=== PATIENT | male | born 1940 | race Two or more races ===

== ENCOUNTER 2018-10-13 15:31 | Inpatient (IN) | payer MEDICARE ==
[~2018-10-13] VITALS: Ht 177.8 cm; Wt 84.6 kg
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
[2018-10-13 15:50] LABS: BASOPHILS # (AUTO) 0.02 x10^3/uL (0-0.1); BASOPHILS % (AUTO) 0 % (0-1); EOSINOPHILS # (AUTO) 0.02 x10^3/uL (0-0.4); EOSINOPHILS % (AUTO) 0 % (1-7); LYMPHOCYTES # (AUTO) 1.16 x10^3/uL (1-3.4); LYMPHOCYTES % (AUTO) 13 % (22-44); MD NO; MEAN CORPUSCULAR HEMOGLOBIN 30.9 pg (27.5-34.5); MEAN CORPUSCULAR HGB CONC 32.8 g/dL (33.2-36.2); MEAN CORPUSCULAR VOLUME 94.2 fL (81-97); MEAN PLATELET VOLUME 9.2 fL (7.4-10.4); MONOCYTES # (AUTO) 0.74 x10^3/uL (0.2-0.8); MONOCYTES % (AUTO) 8 % (2-9); NEUTROPHILS # (AUTO) 6.89 x10^3/uL (1.8-6.8); NEUTROPHILS % (AUTO) 78 % (42-75); PLATELET COUNT 192 x10^3/uL (130-400); RED BLOOD COUNT 4.36 x10^6/uL (4.38-5.82); RED CELL DISTRIBUTION WIDTH 13.4 % (9.4-14.8)
[2018-10-13 15:58] LABS: INTERNATIONAL NORMALIZED RATIO 1.11 (0.93-1.1); PROTHROMBIN TIME 11.6 Seconds (9.6-11.5)
[2018-10-13 16:00] LABS: ALANINE AMINOTRANSFERASE 23 U/L (12-78); ALBUMIN 3.8 g/dL (3.4-5.0); ANION GAP 7 mmol/L (5-15); CALCIUM 8.9 mg/dL (8.5-10.1); CHLORIDE 115 mmol/L (98-107); CREATININE 0.95 mg/dL (0.7-1.3)
[2018-10-13 16:05] LABS: ALKALINE PHOSPHATASE 75 U/L (45-117); BILIRUBIN,TOTAL 1.4 mg/dL (0.2-1.0); SALICYLATE LEVEL < 1.7 mg/dL (2.8-20.0); TOTAL PROTEIN 7.1 g/dL (6.4-8.2); TROPONIN I < 0.015 ng/mL (0.000-0.045)
--- NOTE | 2018-10-13 16:05 | NUR ---
PT RETURNED FROM CT, UPRIGHT ON GURNEY AWAKE & COMFORTABLE, RESPONDS SPONTANEOUSLY TO NAME, NAD, COMFORT MEASURES PROVIDED, CALL LIGHT WITHIN REACH.
--- NOTE | 2018-10-13 16:59 | NUR ---
PT REMAINS UPRIGHT ON GURNEY AWAKE & COMFORTABLE, RESPONDS SPONTANEOUSLY TO NAME, NAD, COMFORT MEASURES PROVIDED, CALL LIGHT WITHIN REACH.
[2018-10-13] MEDS ORDERED: simvastatin (17:12)
[2018-10-13] MEDS ORDERED: tamsulosin (17:12)
[2018-10-13] MEDS ORDERED: metformin (17:12)
[2018-10-13 17:23] LABS: MICROSCOPIC AUTO
[2018-10-13 17:29] LABS: AMPHETAMINE SCREEN, URINE Negative (Negative); BARBITURATE SCREEN, URINE Negative (Negative); BENZODIAZEPINE SCREEN, URINE Negative (Negative); CANNABINOID SCREEN, URINE Negative (Negative); COCAINE SCREEN, URINE Negative (Negative); METHADONE SCREEN, URINE Negative (Negative); OPIATE SCREEN, URINE Negative (Negative)
[2018-10-13 17:34] LABS: CULTURE INDICATED? NO
[2018-10-13] MEDS ORDERED: ZIPRASIDONE 20 MG INJ IM ONE (18:00)
--- NOTE | 2018-10-13 18:00 | NUR ---
PT SEEN BY JAYDON NICOLE), UPRIGHT ON GURNEY AWAKE & COMFORTABLE, RESPONDS SPONTANEOUSLY TO NAME, NAD, COMFORT MEASURES PROVIDED, CALL LIGHT WITHIN REACH.
--- NOTE | 2018-10-13 18:28 | NUR ---
Pt to be admitted to [facility], room 486-2. Report called to
--- NOTE | 2018-10-13 18:55 | NUR ---
REPORT GIVEN TO LOIS
[2018-10-13 20:00] VITALS: BP 139/71
[2018-10-13] MEDS ORDERED: DEXTROSE 4 GM TAB.CHEW PO PRN (21:30)
[2018-10-13] MEDS ORDERED: hydrALAzine 20 MG/ML, 1ML IVPush PRN (21:30)
[2018-10-13] MEDS ORDERED: GLUCAGON 1 MG IM PRN (21:30)
[2018-10-13] MEDS ORDERED: LORazepam 1MG TABLET PO PRN (21:30)
[2018-10-13] MEDS ORDERED: ONDANSETRON 2MG/ML, 2ML IVPush PRN (21:30)
[2018-10-13] MEDS ORDERED: ACETAMINOPHEN 325 MG TABLET PO PRN (21:30)
[2018-10-13] MEDS ORDERED: DEXTROSE 50%, 50ML SYRINGE IVPush PRN (21:30)
[2018-10-13 22:42] LABS: HEMOGLOBIN A1C 6.1 % (4.2-6.3)
[2018-10-13] MEDS: POTASSIUM CHLORIDE 20 MEQ, MAGNESIUM SULFATE 2 GM, THIAMINE 200 MG, MVI ADULT 10 ML, FO... IV SCH (22:45)
[2018-10-13 23:10] LABS: TROPONIN I < 0.015 ng/mL (0.000-0.045)
[2018-10-14 00:14] VITALS: BP 139/71
[2018-10-14 00:57] VITALS: BP 121/71
[2018-10-14] MEDS ORDERED: ASPI-515 PO (01:19)
[2018-10-14] MEDS ORDERED: GLIP2.5T PO (01:23)
[2018-10-14] MEDS ORDERED: IBUP200C8 PO (01:26)
[2018-10-14 05:40] LABS: BASOPHILS # (AUTO) 0.02 x10^3/uL (0-0.1); BASOPHILS % (AUTO) 0 % (0-1); EOSINOPHILS # (AUTO) 0.13 x10^3/uL (0-0.4); EOSINOPHILS % (AUTO) 2 % (1-7); LYMPHOCYTES # (AUTO) 1.74 x10^3/uL (1-3.4); LYMPHOCYTES % (AUTO) 26 % (22-44); MD NO; MEAN CORPUSCULAR HEMOGLOBIN 30.1 pg (27.5-34.5); MEAN CORPUSCULAR HGB CONC 32.2 g/dL (33.2-36.2); MEAN CORPUSCULAR VOLUME 93.2 fL (81-97); MEAN PLATELET VOLUME 9.2 fL (7.4-10.4); MONOCYTES # (AUTO) 0.87 x10^3/uL (0.2-0.8); MONOCYTES % (AUTO) 13 % (2-9); NEUTROPHILS # (AUTO) 3.87 x10^3/uL (1.8-6.8); NEUTROPHILS % (AUTO) 58 % (42-75); PLATELET COUNT 169 x10^3/uL (130-400); RED BLOOD COUNT 4.22 x10^6/uL (4.38-5.82); RED CELL DISTRIBUTION WIDTH 13.8 % (9.4-14.8)
[2018-10-14 05:49] LABS: CALCIUM 8.5 mg/dL (8.5-10.1); CHLORIDE 111 mmol/L (98-107)
[2018-10-14 05:58] LABS: ANION GAP 8 mmol/L (5-15); CREATININE 0.83 mg/dL (0.7-1.3); TROPONIN I < 0.015 ng/mL (0.000-0.045)
[2018-10-14 06:40] VITALS: BP 123/72
[2018-10-14] MEDS: SODIUM CHLORIDE FLUSH 10ML SYR IVF SCH ×2 (08:27→22:26)
[2018-10-14 12:26] VITALS: BP 104/61
[2018-10-14 20:21] VITALS: BP 126/71
[2018-10-14] MEDS: POTASSIUM CHLORIDE 20 MEQ, MAGNESIUM SULFATE 2 GM, THIAMINE 200 MG, MVI ADULT 10 ML, FO... IV SCH (22:26)
[2018-10-15 01:08] VITALS: BP 130/77
[2018-10-15 06:02] LABS: ANION GAP 5 mmol/L (5-15); CALCIUM 8.5 mg/dL (8.5-10.1); CHLORIDE 111 mmol/L (98-107); CREATININE 0.82 mg/dL (0.7-1.3)
[2018-10-15 08:15] VITALS: BP 146/85
[2018-10-15] MEDS: SODIUM CHLORIDE FLUSH 10ML SYR IVF SCH (08:27)
[2018-10-15] MEDS ORDERED: MULT1TAB60 PO (14:17)
[2018-10-15] MEDS ORDERED: THIA100T67 PO (14:17)
[2018-10-15] MEDS ORDERED: FOLI-17 PO (14:17)
[2018-10-15 14:46] VITALS: BP 124/68
[2018-10-15 19:54] VITALS: BP 116/65
== END 2018-10-15 20:59 | disposition home or self-care (01) | DRG 640 ==
LOC: ED 16:58 → EDIP 18:10 → 4EST 18:42
PROVIDERS: ADMIT Family Medicine; ATTEND Family Medicine
DX: E87.1 Hypo-osmolality and hyponatremia (principal); G93.41 Metabolic encephalopathy; D64.9 Anemia, unspecified; E11.9 Type 2 diabetes mellitus without complications; E78.5 Hyperlipidemia, unspecified; F29 Unspecified psychosis not due to a substance or known physiological condition; G31.84 Mild cognitive impairment of uncertain or unknown etiology; F41.9 Anxiety disorder, unspecified; N40.0 Benign prostatic hyperplasia without lower urinary tract symptoms; I49.3 Ventricular premature depolarization; R32 Unspecified urinary incontinence; Z86.73 Personal history of transient ischemic attack (TIA), and cerebral infarction without residual deficits; Z95.2 Presence of prosthetic heart valve; Z79.82 Long term (current) use of aspirin; Z79.899 Other long term (current) drug therapy
CPT/HCPCS: 36415; 70450; 70551; 71046; 80048; 80053; 80307; 81001; 82140; 82607; 82962; 83036; 83605; 83735; 84100; 84443; 84484; 85025; 85610; 87040; 93005; 93306; 93880; 99285; G0378; J3411; J3475; J3480; J7042; 92522-GN